=== PATIENT | female | born 1960 | race Caucasian/White ===

== ENCOUNTER 2017-05-24 07:36 | Emergency (ER) | payer BC ==
[2017-05-24 07:53] VITALS: BP 130/82
--- NOTE | 2017-05-24 07:54 | UC ---
Upper Extremity HPI - HPI Summary HPI Summary: she had prior shoulder pain and has been seeing her doctor for this. She has had injection. She was shaking out a sheet and then had sudden pain in the same shoulder. She has severe pain with abduction. - History of Current Complaint Chief Complaint: UCUpperExtremity Stated Complaint: LEFT SHOULDER PAIN Time Seen by Provider: 05/24/17 07:38 Hx Obtained From: Patient Onset/Duration: Gradual Onset Severity Initially: Moderate Severity Currently: Moderate Location Of Pain: Is Discrete @ - left shoulder. Character: Sharp, Aching Aggravating Factor(s): Movement, Lifting, Abduction Associated Signs And Symptoms: Positive: Negative - Allergies/Home Medications Allergies/Adverse Reactions: Allergies Allergy/AdvReac Type Severity Reaction Status Date / Time Nitrofurantoin Allergy Headache Verified 05/24/17 07:45 [From Macrobid] Sulfa Antibiotics Allergy Rash Verified 05/24/17 07:45 Home Medications: Home Medications Atorvastatin* [Lipitor*] 20 mg PO DAILY 05/24/17 [History Confirmed 05/24/17] Escitalopram Oxalate [Lexapro 10 mg] 10 mg PO DAILY 05/24/17 [History Confirmed 05/24/17] Hydroxychloroquine TAB* [Plaquenil TAB*] 200 mg PO DAILY 05/24/17 [History Confirmed 05/24/17] Omeprazole CAP* [Prilosec CAP* 20 MG] 20 mg PO DAILY 05/24/17 [History Confirmed 05/24/17] Potassium Citrate (NF) [Urocit-K 10 (NF)] 10 meq PO DAILY 05/24/17 [History Confirmed 05/24/17] PMH/Surg Hx/FS Hx/Imm Hx Previously Healthy: Yes - Surgical History Surgical History: Yes Surgery Procedure, Year, and Place: 4 C SECTIONS. LITHROTIPSY. GANGLION CYST REMOVED LEFT HAND MIDDLE FINGER. ENDOMETRIAL ABLASION - Family History Known Family History: Positive: Other - no related family history to shoulder injury. - Social History Alcohol Use: None Substance Use Type: None Smoking Status (MU): Never Smoked Tobacco Review of Systems All Other Systems Reviewed And Are Negative: Yes Physical Exam Triage Information Reviewed: Yes Appearance: Well-Appearing, No Pain Distress, Well-Nourished Vital Signs: Initial Vital Signs Temp 98.8 F 05/24/17 07:37 Pulse 65 05/24/17 07:37 Resp 14 05/24/17 07:37 BP 130/82 05/24/17 07:37 Pulse Ox 99 05/24/17 07:37 Vital Signs Reviewed: Yes Eye Exam: Normal ENT Exam: Normal Neck exam: Normal Respiratory Exam: Normal Cardiovascular Exam: Normal Abdominal Exam: Normal Musculoskeletal Exam: Other - Left shoulder diffuse tenderness. There is severe pain with left shoulder abduction. She is not able to comply with exam due to pain. Neurological Exam: Normal Psychological Exam: Normal Skin Exam: Normal Upper Extremity Course/Dx - Course Course Of Treatment: Possible rotator cuff tear. She had a recent injection and had a sudden pain and weakness with flopping the sheets. She is already seeing Dr. Lloyd and agreed to call him tomorrow to set up f/u for possible MRI. - Differential Dx/Diagnosis Differential Diagnosis/HQI/PQRI: Strain, Sprain Provider Diagnoses: left shoulder injury. possible rotator cuff tear. Discharge - Discharge Plan Condition: Fair Disposition: HOME Prescriptions: HYDROcodone/ACETAMIN 5-325 MG* [[place] 5-325 TAB*] 2 tab PO Q8H PRN #20 tab MDD 6 PRN Reason: Pain Patient Education Materials: Arthralgia (ED) Referrals: Shania Zamudio MD [Primary Care Provider] - Jani Ariza MD [Medical Doctor] -
== END 2017-05-24 08:23 | disposition home or self-care (01) ==
LOC: UCCORT 07:36
DX: S49.92XA Unspecified injury of left shoulder and upper arm, initial encounter (principal); X50.9XXA Other and unspecified overexertion or strenuous movements or postures, initial encounter; Y92.9 Unspecified place or not applicable; Z88.2 Allergy status to sulfonamides
CPT/HCPCS: 99212; G0463

== ENCOUNTER 2018-06-29 09:45 | Inpatient (IN) | payer BC ==
--- NOTE | 2018-06-23 11:47 | HP ---
AMENDED REPORT NOW INCLUDES COSIGNER DESIGNATION - ESIGNED BEFORE ADJUSTMENT HISTORY AND PHYSICAL: DATE OF ADMISSION/SURGERY: 06/29/18 DATE OF OFFICE VISIT: 06/21/18 SURGEON: Madai Thompson MD * (DICTATED BY ALESSIO SEBASTIAN) PROCEDURE: Right total knee arthroplasty. CHIEF COMPLAINT: Right knee pain. HISTORY OF PRESENT ILLNESS: Ms. Louie is a 58-year-old female with complaints of right knee pain. She has failed conservative treatment and elected to proceed with a right total knee arthroplasty, which is scheduled for 06/29/18. PAST MEDICAL HISTORY: High cholesterol, lupus, and basal cell carcinoma. PAST SURGICAL HISTORY: Ganglion cyst excision, x4, lithotripsy, and endometrial ablation. CURRENT MEDICATIONS: 1. Vitamin D with calcium. 2. Omeprazole 20 mg daily. 3. Potassium citrate. 4. Plaquenil 200 mg daily. 5. Lipitor 100 mg at night. ALLERGIES: To MACROBID and SULFA. FAMILY HISTORY: Diabetes, hypertension, CVA, rheumatoid arthritis, and leukemia. SOCIAL HISTORY: She is a 58-year-old female. She lives with her partner. She denies use of tobacco or illicit drugs. REVIEW OF SYSTEMS: A complete 14-point review of systems was reviewed with the patient, is positive for asthma. She denies history of DVT, PE, hepatitis, HIV , or anesthesia problems. PHYSICAL EXAMINATION GENERAL: She is well-developed, well-nourished, in no acute distress. VITAL SIGNS: She stands 5 feet 3 inches tall, weighs 158 pounds. Her blood pressure is 122/86 and heart rate is 71. HEENT: Normocephalic and atraumatic. NECK: Supple. No palpable lymph nodes. PULMONARY: Lungs are clear to auscultation bilaterally. CARDIO: Regular rate and rhythm. Strong S1 and S2. ABDOMEN: Soft, nontender, and nondistended. NEUROLOGIC: She is alert and oriented x3. MUSCULOSKELETAL: Right lower extremity: The skin is intact. There are no open wounds or abrasions. There is a moderate joint effusion. She has a 15- degree valgus deformity with MCL laxity. Range of motion is 5 to 125 degrees with patellofemoral crepitus. 5/5 lower extremity strength. 2+ dorsalis pedis pulses and intact sensation. ASSESSMENT AND PLAN: Ms. Louie is a 58-year-old female with end-stage osteoarthritis of the right knee. She has failed conservative treatment and elected to proceed with a right total knee arthroplasty, which is scheduled for 06/29/[address] Thompson discussed the risks and the benefits of the surgery at today's visit and all of her questions were answered. She will follow with Dr. Thompson 2 weeks after the surgery. ALESSIO SEBASTIAN [id number]/[facility] #: [id number] SHARIF
[~2018-06-29 09:45] MED LIST: Buffered Lidocaine 0.9% SYRIN* 5 ML/SYR SYRINGE INTRADERM ONE
--- OUTSIDE RECORDS SUMMARY | 2018-06-29 09:55 | XMS REPORT ---
:1960 External Reference #:[id number] Author Organization [facility] Address [address] [place] [address] [place] [address] Phone [phone] Care Team Providers Name Role Phone Shania Zamudio MD Primary Care Physician Unavailable Payers Type Date Identification Numbers Payment Provider Subscriber Commercial Policy Number: [id number] TRACIE Veronicapatsy Louie PayID: [id number] [address] [address] [place] [address] Medigap Part B Effective: Policy Number: TRACIE Kai Louie 2010 [id number] Expires: 2016 PayID: [id number] [address] [address] [place] [address] Problems Date Description Provider Status Onset: 03/17/2013 Immunological Findings Nonspec Other & Mauricio Tai M.D. Active Unspec Onset: 03/17/2013 Galactorrhea not associated with Mauricio Tai M.D. Active childbirth Onset: 04/15/2013 Cervical spondylosis without myelopathy Mauricio Tai M.D. Active Onset: 10/29/2016 Localized, primary osteoarthritis Madai Thompson M.D. Active Onset: 12/18/2017 Acquired genu shantgum Madai Thompson M.D. Active Social History Type Date Description Comments Lives With Occupation [employer] ETOH Use Denies alcohol use Smoking Patient has never smoked Exercise Type/Frequency Exercises sporadically Allergies, Adverse Reactions, Alerts Date Description Reaction Status Severity Comments 04/08/2012 Sulfa active 04/08/2012 Macrobid active Medications Medication Date Status Form Strength Qnty SIG Indications Ordering Provider Vitamin D2 03/17 Active Tablets 2000Unit 15233 /2012 total Ordering weekly Provider Omeprazole Active Capsules 20mg 30cap 1 po qd Unknown /0000 DR de jesus Simvastatin Active Tablets 5mg 30tab 1 po qd Unknown /0000 s Plaquenil Active Tablets 200mg 1 by Unknown /0000 mouth every day for 1 week then 2 by mouth daily ongoing Lipitor Active Tablets 100mg 1 by Unknown /0000 mouth every night at bedtime Potassium Citrate Active Tablets 10Meq Uriostegui, ER /0000 ER (1080 mg) MD eKl Methylprednisolone 05/25 Hx TBPK 4mg 1unit medrol M75.32 Jani s dose pack Annita, - take as 08/20 Erythromycin Base 03/17 Hx Tablets 250mg 120ta 1/2 Tab bs bid Albino Tai - 10/20 Ultracet 04/29 Hx Tablets 37.5-325m 30tab 1 - 2 po Jennifer g s q4-6hr Laura, - prn pain Sana.DJose David 03/17 Escitalopram Hx Tablets 10mg Ring, Oxalate /0000 MD Shania - 11/30 Medications Administered in Office Medication Date Status Form Strength Qnty SIG Indications Ordering Provider Depomedrol Administered Injection Madai 40MG William Thompson M.D. Depomedrol Administered Injection Madai 40MG 018 Albino Thompson Depomedrol Administered Injection Madai 40MG 017 Albino Thompson Depomedrol Administered Injection Jani F 40MG 017 MD Annita Depomedrol Administered Injection Madai 40MG 016 Albino Thompson Vital Signs Date Vital Result Comment 05/31/2018 Height 63 inches 5'3" Weight 158.00 lb Heart Rate 68 /min BP Systolic Sitting 104 mmHg BP Diastolic Sitting 80 mmHg Respiratory Rate 16 /min Pain Level 7 BMI (Body Mass Index) 28.0 kg/m2 04/05/2018 Height 63 inches 5'3" Weight 158.00 lb Heart Rate 80 /min BP Systolic 173 mmHg BP Diastolic 66 mmHg Respiratory Rate 16 /min Body Temperature 98.4 F Pain Level 6 BMI (Body Mass Index) 28.0 kg/m2 12/18/2017 Height 63 inches 5'3" Weight 160.00 lb per pt Heart Rate 80 /min reg BP Systolic Sitting 114 mmHg Lue BP Diastolic Sitting 80 mmHg Lue Respiratory Rate 16 /min Pain Level 8 right knee BMI (Body Mass Index) 28.3 kg/m2 08/21/2017 Height 63 inches 5'3" Weight 160.00 lb BP Systolic 134 mmHg BP Diastolic 82 mmHg Respiratory Rate 16 /min Body Temperature 98.0 F Pain Level 4 BMI (Body Mass Index) 28.3 kg/m2 06/15/2017 Height 63 inches 5'3" Weight 160.00 lb Heart Rate 64 /min Respiratory Rate 16 /min Pain Level 1 BMI (Body Mass Index) 28.3 kg/m2 05/25/2017 Height 63 inches 5'3" Weight 160.00 lb BP Systolic 134 mmHg BP Diastolic 78 mmHg Respiratory Rate 14 /min Pain Level 7 BMI (Body Mass Index) 28.3 kg/m2 05/14/2017 Height 63 inches 5'3" Weight 160.00 lb BP Systolic 132 mmHg BP Diastolic 79 mmHg Respiratory Rate 15 /min Pain Level 6 BMI (Body Mass Index) 28.3 kg/m2 12/05/2016 Height 63 inches 5'3" Weight 162.00 lb Respiratory Rate 18 /min Pain Level 1 BMI (Body Mass Index) 28.7 kg/m2 10/29/2016 Height 63 inches 5'3" Weight 162.00 lb Heart Rate 66 /min BP Systolic 138 mmHg BP Diastolic 80 mmHg Respiratory Rate 17 /min Body Temperature 99.3 F Pain Level 3 BMI (Body Mass Index) 28.7 kg/m2 04/15/2013 Weight 160.00 lb Heart Rate 90 /min BP Systolic Sitting 116 mmHg BP Diastolic Sitting 78 mmHg 03/17/2013 Height 63 inches 5'3" Weight 157.00 lb Heart Rate 80 /min BP Systolic Sitting 128 mmHg BP Diastolic Sitting 72 mmHg BMI (Body Mass Index) 27.8 kg/m2 04/29/2012 Height 63 inches 5'3" Weight 160.00 lb BP Systolic 122 mmHg BP Diastolic 76 mmHg BMI (Body Mass Index) 28.3 kg/m2 04/08/2012 Height 63 inches 5'3" Weight 160.00 lb BP Systolic 124 mmHg BP Diastolic 66 mmHg BMI (Body Mass Index) 28.3 kg/m2 Results Test Date Test Result H/L Range Note Laboratory test finding 03/22/2013 Cortisol 10.0 g/dL 1 TSH (Thyroid Stimulating Horm) 2.59 miu/mL 0.34-5.60 Free T4 0.95 ng/mL 0.61-1.24 Acth 18 pg/mL 2 CBC Auto Diff 03/22/2013 White Blood Count 5.2 10^3/uL 4.8-10.8 Red Blood Count 4.93 10^6/uL 4.0-5.4 Hemoglobin 14.9 g/dL 12.0-16.0 Hematocrit 44 % 35-47 Mean Corpuscular Volume 90 fL 80-97 Mean Corpuscular Hemoglobin 30 pg 27-31 Mean Corpuscular HGB Conc 34 g/dL 31-36 Red Cell Distribution Width 14 % 10.5-15 Platelet Count 221 10^3/uL 150-450 Mean Platelet Volume 9 um3 7.4-10.4 Abs Neutrophils 3.4 10^3/uL 1.5-7.7 Abs Lymphocytes 1.3 10^3/uL 1.0-4.8 Abs Monocytes 0.4 10^3/uL 0-0.8 Abs Eosinophils 0.1 10^3/uL 0-0.6 Abs Basophils 0.1 10^3/uL 0-0.2 Abs Nucleated RBC 0 10^3/uL Granulocyte % 65.2 % 38-83 Lymphocyte % 24.6 % Low 25-47 Monocyte % 8.1 % 1-9 Eosinophil % 1.0 % 0-6 Basophil % 1.1 % 0-2 Nucleated Red Blood Cells % 0 Urinalysis 03/22/2013 Urine Color Yellow Urine Appearance Clear Urine Specific [place] 1.007 Low 1.010-1.030 Urine Esterase Negative Negative Urine Nitrate Negative Negative Urine Urobilinogen Negative E.U./dL Negative Urine Protein Negative mg/dL Negative Urine pH 6.5 5-9 Urine Blood Negative Negative Urine Ketones Negative mg/dL Negative Urine Bilirubin Negative Negative Urine Glucose Negative mg/dL Negative Laboratory test finding 03/22/2013 Erythrocyte Sed Rate 9 mm/Hr 0-30 C Reactive Protein < 0.5 mg/dL Less than 0.5 Hla B27 03/22/2013 Hla B27 Negative 3 Hla B27 Interp See Comment 4 Laboratory test finding 03/22/2013 Prolactin 5.78 ng/mL 1.0-25.0 1 AM Cortisol 8.7-22.4 PM Cortisol Less than 10 2 -- REFERENCE VALUE -- 10-60 (a.m. collection) Test Performed by: [facility] [address] [place] [address] Overhauler: Taco Ambriz III, M.D. 3 -- REFERENCE VALUE -- Not Applicable 4 RESULT: HLA-B27 antigen was not detected. Method: Flow Cytometry Test Performed by: [facility] - [address] [address] Overhauler: Taco Ambriz III, M.D. Procedures Date CPT Code Description Status 04/05/2018 51582 Inject/Drain Joint/Bursa Major W/O US Completed 12/18/2017 99439 Inject/Drain Joint/Bursa Major W/O US Completed 08/21/2017 24799 Inject/Drain Joint/Bursa Major W/O US Completed 05/14/2017 44218 Inject/Drain Joint/Bursa Major W/O US Completed 10/29/2016 53213 Inject/Drain Joint/Bursa Major W/O US Completed 05/04/2012 42643 Excision Tendon Sheath Ganglion /Or Joint Capsule Hand Completed Or Finger 05/04/2012 16398 Excision Tendon Sheath Ganglion /Or Joint Capsule Hand Completed Or Finger 04/08/2012 15326 Rad Exam; Fingers Completed Encounters Type Date Location Provider CPT E/M Dx Office Visit 06/15/2017 [facility] [address] M75.32 11:30a Mana BRENNER G56.03 G56.23 Office Visit 05/25/2017 3:15p [facility] 23201 M75.32 Mana BRENNER M25.512 Office Visit 05/14/2017 9:00a [facility] Jani Ariza 42360 M75.32 Of Mana BRENNER Office Visit 12/05/2016 9:30a [facility] Madai Thompson M.D. 00107 M25.561 Of Mana M25.562 M17.0 Office Visit 10/29/2016 10:30a [facility] Mad[facility] Thompson M.D. 27391 M25.561 Mana M25.562 M17.0 Office Visit 04/15/2013 1:40p [facility] Mauricio Tai, 32514 795.79 Of Yolanda Posada 721.0 Office Visit 03/17/2013 3:00p [facility] Mauricio Endo, 82349 795.79 Of Yolanda Posada 611.6 Plan of Care Future Appointment(s):06/21/2018 1:30 pm - Madai Thompson M.D. at [facility]/2018 - Madai Thompson M.D.M17.11 Unilateral primary osteoarthritis, right kneeFollow up:Follow up: 7-10 days before rwvuyatV57.061 Valgus deformity, not elsewhere classified, right kneeM25.461 Effusion, right kneeM25.561 Pain in right knee
--- OUTSIDE RECORDS SUMMARY | 2018-06-29 09:55 | XMS REPORT ---
:1960 External Reference #:[id number] Author Organization [facility] Address [address], [address] [place] [address] Phone [phone] Care Team Providers Name Role Phone Shania Zamudio MD Care Team Information Assurance Associate Unavailable Shania Zamudio MD Primary Care Physician Unavailable Payers Type Date Identification Numbers Payment Provider Subscriber Commercial Policy Number: [id number] Chuckie Louie PayID: [id number] [address] [address] [place] [address] Problems Date Description Provider Status Onset: 11/21/2003 Sprain of foot Active Family History Date Family Member(s) Problem(s) Comments Father due to Parkinson's disease () Father Parkinson's Disease Mother due to Diabetes () Mother Cerebrovascular Accident Mother due to Stroke () Mother Asthma Mother due to Heart Disease () First Brother due to Leukemia () Second Brother Lung Cancer Third Brother Parkinson's Disease Fourth Brother Thyroid Disease First Sister Cervical Cancer Social History Type Date Description Comments Marital Status Lives With Spouse Diet Patient follows no dietary restrictions Occupation [employer] Cigarette Use Never Smoked Cigarettes ETOH Use Rarely consumes alcohol Recreational Drug Use Never Used Drugs Daily Caffeine Patient consumes minimal amounts of caffeine Exercise Type/Frequency Exercises regularly Allergies, Adverse Reactions, Alerts Date Description Reaction Status Severity Comments 09/05/2014 Sulfa Drugs active hives 09/05/2014 Macrobid active does not tolerate Medications Medication Date Status Form Strength Qnty SIG Indications Ordering Provider Prilosec Active Capsules 20mg 30cap 1 by mouth Unknown /0000 DR de jesus every day Vitamin D-3 / Active Capsules 1000Unit 2 by mouth Unknown Calcium /0000 every day Atorvastatin Active Tablets 20mg 1 by mouth Unknown Calcium /0000 every day Potassium Citrate Active Tablets 10Meq 1 tabs by Unknown ER /0000 ER (1080 mg) mouth twice a day Hydroxychloroquine Active Tablets 200mg twice Unknown Sulfate /0000 daily Proair HFA Active Aerosol 108(90Bas take 2 Unknown / e) puffs mcg/Act every 6 hours as needed for shortness of breath. Immunizations CPT Code Status Date Vaccine Lot # [id number] Given 04/22/1994 DT Vaccine Younger Than 7 Yrs Vital Signs Date Vital Result Comment 05/06/2018 BP Systolic Sitting Left Arm 102 mmHg BP Diastolic Sitting Left Arm 80 mmHg Heart Rate 79 /min Respiratory Rate 18 /min Height 63.5 inches 5'3.50" Weight 159.00 lb BMI (Body Mass Index) 27.7 kg/m2 BSA (Body Surface Area) 1.76 m2 [place] body weight in kilograms 53 O2 % BldC Oximetry 96 % 09/27/2014 BP Systolic Sitting Right Arm 112 mmHg BP Diastolic Sitting Right Arm 74 mmHg Heart Rate 81 /min Respiratory Rate 16 /min Height 63.5 inches 5'3.50" Weight 159.00 lb BMI (Body Mass Index) 27.7 kg/m2 BSA (Body Surface Area) 1.76 m2 Results Description No Information Procedures Date CPT Code Description Status 05/19/2018 41546 Bronchospasm Provocation Evaluation Multi Spirometric Completed Determinati 05/19/2018 08094 Spirometry Completed 09/22/2016 93389 Nerve Conduction 7-8 Studies Completed 09/22/2016 91009 Needle Electromyography Complete, Five Or More Muscles Completed Studied 04/10/2016 08299 Stress Test Interpre And Report Only Completed 04/10/2016 71669 Stress Test Interpre And Report Only Completed 04/10/2016 59883 Stress Test Physician Super Only Completed 04/10/2016 24605 Stress Test Physician Super Only Completed 04/10/2016 77804 Myocardial Imaging Tomographic Multiple Study AT Rest Completed Or Stress 04/10/2016 63039 Myocardial Imaging Tomographic Multiple Study AT Rest Completed Or Stress 11/30/2013 Mammogram Completed 11/30/2012 Colonoscopy Completed 11/30/2011 Bone Mineral Density Test Completed Encounters Type Date Location Provider CPT E/M Dx Office Visit 05/06/2018 2:00p [place] [address] J45.20 J30.89 Office Visit 09/27/2014 8:30a Surgical Office Ponce Taylor, [address]194 709.9 M.Heather Plan of Care Future Appointment(s):10/06/2018 2:45 pm - Noman Treadwell MD at [facility]/07/ 2018 - Noman Treadwell MDJ45.20 Mild intermittent asthma, uncomplicatedComments: Symptoms may be secondary to asthma. I am checking PFTs. She wishes not to start any new medicationsat this time.Follow up:5 nuvrosQ01.89 Other allergic rhinitisComments:If her symptoms are persistent I will check RAST and IgE.
--- OUTSIDE RECORDS SUMMARY | 2018-06-29 09:55 | XMS REPORT ---
:1960 External Reference #:[id number] Author Organization [facility] Address [address] [place] [address] [place] [address] Phone [phone] Care Team Providers Name Role Phone Shania Zamudio MD Primary Care Physician Unavailable Payers Type Date Identification Numbers Payment Provider Subscriber Commercial Policy Number: [id number] TRACIE Veronicapatsy Louie PayID: [id number] [address] [address] [place] [address] Medigap Part B Effective: Policy Number: TRACIE Kai Louie 2010 [id number] Expires: 2016 PayID: [id number] [address] [address] [place] [address] Problems Date Description Provider Status Onset: 03/17/2013 [...] Type Date Description Comments 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 Denies alcohol use Smoking Patient has never smoked Exercise Type/Frequency Exercises sporadically Allergies, Adverse Reactions, Alerts Date Description Reaction Status Severity Comments 04/08/2012 Sulfa active 04/08/2012 Macrobid active Medications Medication Date Status Form Strength Qnty SIG Indications Ordering Provider Vitamin D2 03/17 Active Tablets 2000Unit 22429 /2012 total Ordering weekly Provider Omeprazole Active Capsules 20mg 30cap 1 po qd Unknown /0000 DR de jesus Plaquenil Active Tablets 200mg 1 by Unknown /0000 mouth every day for 1 week then 2 by mouth daily ongoing Lipitor Active Tablets 20mg 1 daily Unknown / Potassium Citrate Active Tablets 10Meq Uriostegui, ER /0000 ER (1080 mg) MD Kel Methylprednisolone 05/25 Hx TBPK 4mg 1unit medrol M75.32 Jani s dose pack Annita, - take as MD 08/20 Erythromycin Base 03/17 Hx Tablets 250mg 120ta 1/2 Tab bs bid Albino Tai - 10/20 Ultracet 04/29 Hx Tablets 37.5-325m 30tab 1 - 2 po g s q4-6hr Laura, - prn pain Albino 03/17 Simvastatin Hx Tablets 5mg 30tab 1 po qd Unknown /0000 s - 06/20 Escitalopram Hx Tablets 10mg Ring, Oxalate /0000 [...] Thompson Vital Signs Date Vital Result Comment 06/21/2018 Height 63 inches 5'3" Weight 158.00 lb Heart Rate 71 /min BP Systolic 122 mmHg BP Diastolic 86 mmHg BMI (Body Mass Index) 28.0 kg/m2 05/31/2018 Height 63 inches 5'3" Weight 158.00 [...] Color Yellow Urine Appearance Clear Urine Specific [place] 1.007 Low 1.010-1.030 Urine Esterase Negative Negative [...] -- 10-60 (a.m. collection) Test Performed by: [address] [address] [address] Refinisher: Taco Ambriz III, M.D. 3 -- REFERENCE VALUE -- Not Applicable 4 RESULT: HLA-B27 antigen was not detected. Method: Flow Cytometry Test Performed by: [address] [address] [address] Refinisher: Taco Ambriz III, M.D. Procedures Date CPT Code Description Status 04/05/2018 24473 Inject/Drain Joint/Bursa Major W/O US Completed 12/18/2017 01170 Inject/Drain Joint/Bursa Major W/O US Completed 08/21/2017 58481 Inject/Drain Joint/Bursa Major W/O US Completed 05/14/2017 11155 Inject/Drain Joint/Bursa Major W/O US Completed 10/29/2016 15813 Inject/Drain Joint/Bursa Major W/O US Completed 05/04/2012 52250 Excision Tendon Sheath Ganglion /Or Joint Capsule Hand Completed Or Finger 05/04/2012 79165 Excision Tendon Sheath Ganglion /Or Joint Capsule Hand Completed Or Finger 04/08/2012 28376 Rad Exam; Fingers Completed Encounters Type Date Location Provider CPT E/M Dx Office Visit 05/31/2018 [facility] Thompson M.D. 14101 M17.11 3:15p Mana M21.061 M25.461 M25.561 Office Visit 06/15/2017 11:30a [facility] 47553 M75.32 Mana BRENNER G56.03 G56.23 Office Visit 05/25/2017 3:15p [facility] 58034 M75.32 Mana BRENNER M25.512 Office Visit 05/14/2017 9:00a [facility] Jani Juan Ariza, [address]7550 M75.32 Of Mana BRENNER Office Visit 12/05/2016 9:30a [facility] Madai Thompson M.D. 66787 M25.561 Of Mana M25.562 M17.0 Office Visit 10/29/2016 10:30a [facility] Thompson M.D. 04369 M25.561 Mana M25.562 M17.0 Office Visit 04/15/2013 1:40p [facility] Mauricio Endo, [address] 795.79 Of Yolanda Posada 721.0 Office Visit 03/17/2013 3:00p [facility] Mauricio Endo, [address]10[address] 795.79 Of Yolanda Posada 611.6 Plan of Care Future Appointment(s):07/12/2018 1:30 pm - Madai Thompson M.D. at [facility]/29/2018 12:30 pm - Jayro Cruz PA-C at [facility]06/29/2018 12:30 pm - ALESSIO Ortiz at [facility]06/29/2018 12:30 pm - Madai Thompson M.D. at [facility]06/21/2018 - Madai Thompson M.D.M17.11 Unilateral primary osteoarthritis, right kneeFollow up:Follow up: 2 weeks after emgjvftN72.061 Valgus deformity, not elsewhere classified, right kneeM25.461 Effusion, right kneeM25.561 Pain in right knee
[2018-06-29] MEDS ORDERED: Tranexamic Acid 1,000 MG/10 ML 1,000 MG in NS 0.9% 100 ML* 100 ML IV ONE (10:00)
[2018-06-29] MEDS ORDERED: ceFAZolin 2 GM PREMIX (*) 2 GM/50 ML BAG IVPB ONE (10:03)
[2018-06-29] MEDS ORDERED: fentaNYL* 50 MCG/ML 2 ML VIAL (100 MCG VIAL) ONE ×2 (10:12→17:42)
[2018-06-29] MEDS ORDERED: Midazolam* 1 MG/ML 5 ML VIAL (5 MG) ONE (10:12)
[2018-06-29] MEDS ORDERED: Propofol* 10 MG/ML 20 ML BTL IV PUSH ONE ×2 (10:55→12:46)
[2018-06-29] MEDS ORDERED: EPHEDrine (Pressors)* 50 MG/ML VIAL ONE (12:46)
[2018-06-29] MEDS ORDERED: ROPIVACAINE 5 MG/ML 30 ML BTL (0.5%) ONE (12:46)
[2018-06-29] MEDS ORDERED: Bupivacaine 0.5% PF 10 ML VIAL INJ ONE (12:46)
[2018-06-29] MEDS ORDERED: HYDROcodone/ACETAMIN 5-325 MG* 1 TAB PO PRN (13:08)
[2018-06-29] MEDS ORDERED: fentaNYL* 50 MCG/ML 2 ML VIAL (100 MCG VIAL) IV PRN (13:08)
[2018-06-29] MEDS ORDERED: Ondansetron INJ* 2 MG/ML VIAL IV PRN ×2 (13:08→15:00)
[2018-06-29] MEDS ORDERED: Naloxone* 0.4 MG/ML 1 ML VIAL IV PRN (13:08)
[2018-06-29] MEDS ORDERED: Acetaminophen TAB* 325 MG PO PRN (13:08)
[2018-06-29] MEDS ORDERED: oxyCODONE/Acetamin 5/325 MG* TAB PO PRN (15:00)
[2018-06-29] MEDS ORDERED: ceFAZolin 1 GM in Dextrose (*) 1 GM/50 ML BAG IVPB SCH (15:00)
[2018-06-29] MEDS ORDERED: Cyclobenzaprine TAB* 10 MG PO PRN (15:00)
[2018-06-29] MEDS ORDERED: Morphine INJ* 2 MG/ML 1 ML SYRINGE (TWO MG - NEW SYRINGE VERSION) IV PRN (15:00)
[2018-06-29] MEDS ORDERED: Bisacodyl SUPP* 10 MG SUPP PR PRN (15:00)
[2018-06-29] MEDS ORDERED: Acetaminophen TAB* 325 MG PO SCH (15:00)
[2018-06-29] MEDS ORDERED: Polyethylene Glycol 3350* 17 GM PACKET PO PRN (15:00)
[2018-06-29] MEDS ORDERED: diPHENhydraMINE IV* 50 MG/ML 1 ml VIAL (BENADRYL) IV PRN (15:00)
[2018-06-29] MEDS ORDERED: Magnesium Hydroxide LIQ* 30 ML UDC PO PRN (15:00)
[2018-06-29] MEDS ORDERED: Albuterol HFA INHALER* 8 gm MDI INH PRN (15:04)
--- NOTE | 2018-06-29 15:53 | RAD ---
HISTORY: s/p right TKA COMPARISONS: June 21, 2018 VIEWS: 2, Frontal and lateral views of the right knee FINDINGS: BONE DENSITY: Normal. BONES: The patient is status post right knee arthroplasty. There is no hardware failure or osteolysis. JOINTS: The patient is status post right knee arthroplasty. ALIGNMENT: There is no dislocation. SOFT TISSUES: Unremarkable. OTHER FINDINGS: There is postsurgical change to the right knee. IMPRESSION: STATUS POST RIGHT KNEE ARTHROPLASTY.
[2018-06-29] MEDS ORDERED: HYDROcodone/ACETAMIN 5-325 MG* 1 TAB ONE (17:42)
[2018-06-29] MEDS ORDERED: Warfarin TAB(*) 6 MG PO ONE (19:30)
[2018-06-29] MEDS: Atorvastatin* 20 MG TAB PO SCH (19:38)
[2018-06-29] MEDS: Acetaminophen TAB* 325 MG PO SCH (19:39)
[2018-06-29] MEDS: Omeprazole CAP* 20 MG PO SCH (19:39)
[2018-06-29] MEDS: oxyCODONE TAB* 5 MG TAB PO PRN (19:40)
[2018-06-29] MEDS: Ondansetron TAB* 4 MG PO PRN (19:41)
[2018-06-29] MEDS: ceFAZolin 1 GM in Dextrose (*) 1 GM/50 ML BAG IVPB SCH (21:11)
[2018-06-29] MEDS: Hydroxychloroquine TAB* 200 MG PO SCH (21:13)
[2018-06-29] MEDS: Potassium Chlor TAB* 10 MEQ TAB.ER PO SCH (21:13)
[2018-06-29] MEDS: Docusate CAP* 100 MG PO SCH (21:13)
[2018-06-29] MEDS: Magnesium Hydroxide LIQ* 30 ML UDC PO SCH (21:13)
[2018-06-30] MEDS: oxyCODONE TAB* 5 MG TAB PO PRN ×4 (00:30→21:55)
[2018-06-30] MEDS: Acetaminophen TAB* 325 MG PO SCH ×3 (03:33→19:09)
[2018-06-30] MEDS: ceFAZolin 1 GM in Dextrose (*) 1 GM/50 ML BAG IVPB SCH ×2 (04:26→12:05)
[2018-06-30] MEDS: Ondansetron TAB* 4 MG PO PRN (04:33)
[2018-06-30] MEDS ORDERED: PROCHLORPERAZINE INJ 5 MG/ML 2 ML VIAL IV PRN (04:54)
[2018-06-30 05:54] LABS: Hematocrit 38 % (35-47); Hemoglobin 13.4 g/dl (12.0-16.0); Mean Platelet Volume 8.5 um3 (7.4-10.4); Platelet Count 196 10^3/ul (150-450)
[2018-06-30 06:02] LABS: INR 0.97 (0.77-1.02)
[2018-06-30] MEDS ORDERED: Scopolamine 1.5 mg* PATCH TRANSDERM ONE (07:00)
[2018-06-30] MEDS: oxyCODONE/Acetamin 5/325 MG* TAB PO PRN ×2 (07:39→18:37)
[2018-06-30 08:18] LABS: EGFR Non-African American 79.1 (>60)
--- NOTE | 2018-06-30 08:58 | PN ---
Progress Note - Progress Note Date of Service: 06/30/18 SOAP: Subjective: []Patient seen at bedside. She is feeling dizzy and nauseous with symptom improvement with scopolamine patch. Right knee pain is tolerable though rated 7/ 10 both at rest and with activity. Denies chest pain, shortness of breath or leg numbness. Objective: []General: Well appearing, NAD RLE: Right knee dressing is clean, dry and intact without surrounding erythema. Thigh is soft. DF/PF intact. Sensation intact distally. DP 2+. BL LE calves supple and nontender without erythema, edema or palpable cords. Assessment: []POD 1 sp right total knee arthroplasty on 06/[address] Thompson Plan: []WBAT PT/OT Continue cryo unit, first dressing change tomorrow Lovenox bridge to coumadin, coumadin 8 mg today Vital Signs Temp 98.0 F 06/30/18 08:02 Pulse 60 06/30/18 07:39 Resp 20 06/30/18 08:00 BP 121/63 06/30/18 07:39 Pulse Ox 91 06/30/18 07:39 Intake & Output 06/29/18 06/30/18 06/30/18 18:59 06:59 18:59 Intake Total 2500 1660 Output Total 1880 1500 Balance 620 160 Weight 157 lb Intake: IV Fluids 2500 1110 ABX - CEFAZOLIN 110 LR 2500 1000 Oral 550 Output: Haider 1600 1000 Residual 30 Haider 16 Fr 30 Emesis 500 Estimated Blood Loss 250 Other: # Bowel Movements 0 Laboratory Last Values Hgb 13.4 g/dl (12.0-16.0) 06/30/18 05:32 Hct 38 % (35-47) 06/30/18 05:32 Plt Count 196 10^3/ul (150-450) 06/30/18 05:32 MPV 8.5 um3 (7.4-10.4) 06/30/18 05:32 INR (Anticoag Therapy) 0.97 (0.77-1.02) 06/30/18 05:32 Sodium 137 mmol/L (135-145) 06/30/18 05:32 Potassium 3.6 mmol/L (3.5-5.0) 06/30/18 05:32 Chloride 100 mmol/L (101-111) L 06/30/18 05:32 Carbon Dioxide 26 mmol/L (22-32) 06/30/18 05:32 Anion Gap 11 mmol/L (2-11) 06/30/18 05:32 BUN 13 mg/dL (6-24) 06/30/18 05:32 Creatinine 0.75 mg/dL (0.51-0.95) 06/30/18 05:32 Est GFR ( Amer) 95.7 (>60) 06/30/18 05:32 Est GFR (Non-Af Amer) 79.1 (>60) 06/30/18 05:32 BUN/Creatinine Ratio 17.3 (8-20) 06/30/18 05:32 Glucose 149 mg/dL (70-100) H 06/30/18 05:32 Calcium 8.9 mg/dL (8.6-10.3) 06/30/18 05:32
[2018-06-30] MEDS: Magnesium Hydroxide LIQ* 30 ML UDC PO SCH ×2 (09:13→21:55)
[2018-06-30] MEDS: Hydroxychloroquine TAB* 200 MG PO SCH ×2 (09:14→21:55)
[2018-06-30] MEDS: Docusate CAP* 100 MG PO SCH ×2 (09:14→21:55)
[2018-06-30] MEDS: Potassium Chlor TAB* 10 MEQ TAB.ER PO SCH ×2 (09:14→21:55)
[2018-06-30] MEDS: Enoxaparin(*) 30 MG/0.3 ML SYR SUBCUT SCH (12:04)
--- NOTE | 2018-06-30 13:53 | OP ---
DATE OF OPERATION: 06/29/18 - ROOM #348 DATE OF : 58 ATTENDING SURGEON: Madai Thompson M.D. MOTION PICTURE DIRECTOR: ALESSIO Yanez. Gonzalez did help throughout the procedure with preparation of the leg, wound retraction, manipulation of the knee, and wound closure. ANESTHESIOLOGIST: Dr. Mclaughlin. ANESTHESIA TYPE: Spinal. PRE-OP DIAGNOSIS: Severe end-stage degenerative osteoarthritis of the right knee joint. POST-OP DIAGNOSIS: Severe end-stage degenerative osteoarthritis of the right knee joint. OPERATIVE PROCEDURE: Right total knee arthroplasty. TOURNIQUET TIME: 51 minutes. COMPLICATIONS: None. ESTIMATED BLOOD LOSS: 300 mL. SPECIMEN: Bone and cartilage from the right knee joint sent to Pathology. HARDWARE USED: This is cemented cemented [employer] total knee arthroplasty hardware. Two packages of Simplex bone cement. For the femur, a size 4 narrow right posterior stabilized Legion Oxinium component. For the tibia, a size 2 right Randi II tibial base plate. For the insert, a 26-mm, 7.5 thickness, three-peg all-poly patella and for the insert, a 9-mm Legion size 1/2 high flexion articular insert. BRIEF HISTORY/INDICATIONS: Ms. Louie is a 58-year-old female with years of increasingly severe right knee pain. Radiographs showed advanced arthritis, worse in the patellofemoral compartment, and she did have valgus deformity. She failed conservative treatment with the antiinflammatories, pain medications , intraarticular injections, and physical therapy. Due to continued pain and decreased quality of life, she elected to undergo right total knee arthroplasty. Informed consent was obtained from the patient. She understood the risks of surgery included, but were not limited to bleeding, infection, damage to nearby structures, continued pain, need for further surgery, intraoperative fracture, nerve palsy, hardware failure or loosening, knee stiffness, loss of motion, stroke, heart attack, blood clot, and . She wished to proceed. INTRAOPERATIVE FINDINGS: Intraoperatively, the patient was noted to have advanced cartilage degeneration in all 3 compartments. She had complete loss of cartilage in the patellofemoral joint. DESCRIPTION OF PROCEDURE: Ms. Louie was identified in the preanesthesia unit. Her right lower extremity was marked as the correct operative site. Informed consent was signed and placed in the chart. The patient was taken to the operating room and placed under spinal anesthesia. A Haider catheter was placed. Tourniquet was placed on the right thigh. Right lower extremity was prepped and draped in the usual sterile fashion. Preop time-out was made to correctly identify the patient, side and site. Appropriate perioperative antibiotics were given within 1 hour of incision. Tourniquet was inflated and total tourniquet time for this procedure was 51 minutes. A midline incision was made with a 10 blade and carried down through the extensor mechanism. New 10 blade was used to make standard medial parapatellar arthrotomy. Patella was subluxed laterally. Electrocautery was used to subperiosteally elevate the soft tissues off the superomedial tibia to the mid sagittal plane. The knee was flexed up. The anterior horn of the lateral meniscus and the ACL were sharply released. A drill was used to enter the distal femur. Intramedullary distal femoral cutting guide was placed and pinned into position. Oscillating saw was used to make the distal femoral cut. Next, the external rotation guide was pinned on the distal femur and the distal femur was sized to a size 4. Size 4 multi-cutting jig was pinned on the distal femur. Oscillating saw was used to make the appropriate 4 chamfer cuts. The PCL was completely released and the tibia was subluxed anteriorly. Extramedullary tibial cutting guide was pinned on the proximal tibia. Oscillating saw was used to make a proximal tibial cut perpendicular to the mechanical axis of the tibia. The bone was carefully removed. The knee was brought out into full extension. The spacer block had good fit with the knee in full extension. Medial and lateral ligaments were well balanced. Flexion and extension gaps were well balanced. The knee was flexed up. Lamina spreaders were placed both medially and laterally. Any remaining meniscus was carefully removed using electrocautery. Posterior osteophytes were removed using curved osteotome and curette. Tibial tray and drop fatuma were placed and once again confirmed a satisfactory proximal tibial cut. A size 4 narrow right femoral trial was impacted onto the distal femur and had excellent fit. The box for the posterior stabilized implant was prepared using a reamer and box cut osteotome. Size 2 tibial tray trial with a 9 mm insert trial was placed and the knee was taken through a range of motion. The knee had full extension to 130 degrees of flexion with satisfactory patellofemoral tracking. The patella was everted. A 7-mm of subpatellar bone and cartilage were carefully removed an oscillating saw. The patella was sized to a size 26. Three peg holes were drilled through the size 26 guide. A 26-trial with 7.5 thickness was chosen and placed. The knee was taken through a range of motion and had satisfactory patellofemoral tracking. All trials were carefully removed. The tibia was subluxed anteriorly and sized to a size 2. Proximal tibia was prepared using a size 2 keel punch. All bony cut surfaces were copiously irrigated with sterile saline and dried. Final implants were cemented into place starting with the tibia followed by the femur and last the patella. A 9-mm insert trial was placed while the knee was brought out into full extension. Tourniquet was turned down and the knee was copiously irrigated with sterile saline. Electrocautery was used to obtain meticulous hemostasis. Once the cement had fully cured, the insert trial was removed. Any excess cement was removed from around the capsule and hardware. A size 9 posterior stabilized articular insert size 1/2 chosen as a final insert. This was locked into position on the tibial tray. This was a high flexion insert. The stability of the insert was checked and rechecked and noted to be stable. The extensor mechanism was closed using interrupted #1 Vicryls. The rest of the incision was closed in a layered fashion using 0 and 2-0 Vicryls. Skin was closed using running 3-0 nylon suture. Sterile Xeroform, 4x4s, and Webril were used to cover the incision. Leroy wrap and cold pack were placed over this. The patient's anesthesia was reversed without difficulty. She was taken to the PACU in stable condition. Intended weightbearing will be weightbearing as tolerated. Intended DVT prophylaxis will be Coumadin with a Lovenox bridge. [id number]/[facility] #: [id number] [facility]
[2018-06-30] MEDS ORDERED: Warfarin TAB(*) 4 MG PO ONE (17:00)
[2018-06-30] MEDS: Omeprazole CAP* 20 MG PO SCH (17:18)
[2018-06-30] MEDS: Atorvastatin* 20 MG TAB PO SCH (17:18)
[2018-07-01] MEDS: oxyCODONE/Acetamin 5/325 MG* TAB PO PRN ×3 (02:55→12:02)
[2018-07-01] MEDS: Acetaminophen TAB* 325 MG PO SCH ×2 (02:57→12:02)
[2018-07-01 06:05] LABS: Hematocrit 38 % (35-47); Hemoglobin 13.2 g/dl (12.0-16.0); Mean Platelet Volume 8.6 um3 (7.4-10.4); Platelet Count 217 10^3/ul (150-450)
[2018-07-01 06:09] LABS: INR 2.04 (0.77-1.02)
[2018-07-01] MEDS: Docusate CAP* 100 MG PO SCH (08:13)
[2018-07-01] MEDS: Magnesium Hydroxide LIQ* 30 ML UDC PO SCH (08:13)
[2018-07-01] MEDS: Hydroxychloroquine TAB* 200 MG PO SCH (08:13)
[2018-07-01] MEDS: Potassium Chlor TAB* 10 MEQ TAB.ER PO SCH (08:13)
--- NOTE | 2018-07-01 08:59 | PN ---
Progress Note - Progress Note Date of Service: 07/01/18 SOAP: Subjective: [] Patient seen OOB in chair. She is feeling well with no nausea or dizziness today. Denies chest pain, shortness of breath, leg numbness. Right knee pain is well controlled. Objective: [] General: Well appearing, NAD RLE: Right knee dressing changed, incision is clean, dry and intact without surrounding erythema. Thigh is soft. DF/PF intact. Sensation intact distally. DP 2+. BL LE calves supple and nontender without erythema, edema or palpable cords. Assessment: []POD 2 sp right total knee arthroplasty on 06/[address] Thompson Plan: []WBAT PT/OT Continue cryo unit stop Lovenox , coumadin 0 mg today Likely DC home today, will evaluate after PT Vital Signs Temp 98.6 F 07/01/18 07:30 Pulse 64 07/01/18 07:30 Resp 18 07/01/18 08:13 BP 127/55 07/01/18 07:30 Pulse Ox 92 07/01/18 07:30 Intake & Output 06/30/18 07/01/18 07/01/18 18:59 06:59 18:59 Intake Total 1184 1000 360 Output Total 1525 1500 300 Balance -341 -500 60 Intake: IV Fluids 844 ABX - CEFAZOLIN 55 LR 789 Oral 340 1000 360 Output: Urine 1525 1500 300 Laboratory Last Values Hgb 13.2 g/dl (12.0-16.0) 07/01/18 05:39 Hct 38 % (35-47) 07/01/18 05:39 Plt Count 217 10^3/ul (150-450) 07/01/18 05:39 MPV 8.6 um3 (7.4-10.4) 07/01/18 05:39 INR (Anticoag Therapy) 2.04 (0.77-1.02) H 07/01/18 05:39 Sodium 137 mmol/L (135-145) 06/30/18 05:32 Potassium 3.6 mmol/L (3.5-5.0) 06/30/18 05:32 Chloride 100 mmol/L (101-111) L 06/30/18 05:32 Carbon Dioxide 26 mmol/L (22-32) 06/30/18 05:32 Anion Gap 11 mmol/L (2-11) 06/30/18 05:32 BUN 13 mg/dL (6-24) 06/30/18 05:32 Creatinine 0.75 mg/dL (0.51-0.95) 06/30/18 05:32 Est GFR ( Amer) 95.7 (>60) 06/30/18 05:32 Est GFR (Non-Af Amer) 79.1 (>60) 06/30/18 05:32 BUN/Creatinine Ratio 17.3 (8-20) 06/30/18 05:32 Glucose 149 mg/dL (70-100) H 06/30/18 05:32 Calcium 8.9 mg/dL (8.6-10.3) 06/30/18 05:32
[2018-07-01 11:40] VITALS: BP 121/58
[2018-07-01] MEDS: Enoxaparin(*) 30 MG/0.3 ML SYR SUBCUT SCH (11:52)
--- NOTE | 2018-07-02 03:33 | DS ---
DISCHARGE SUMMARY: DATE OF ADMISSION: 06/29/18 DATE OF DISCHARGE: 07/01/18 PROVIDER: Madai Thompson MD. ATTENDING SURGEON: Madai Thompson MD * (DICTATED BY ALESSIO SEBASTIAN) ACCESS DEVELOPER: ALESSIO Sebastian PREOPERATIVE DIAGNOSIS: Severe end-stage degenerative osteoarthritis of the right knee joint. OPERATIVE PROCEDURE: Right total knee arthroplasty. HISTORY: Ms. Louie is a 58-year-old female with years of increasingly severe right knee pain. Radiograph showed advanced arthritis worse on the patellofemoral compartment. She does have valgus deformity. She failed conservative treatment with anti-inflammatories, pain medications, intra- articular injections and physical therapy. She elected to undergo a right total knee arthroplasty. HOSPITAL COURSE: The patient was admitted to [facility] on . She underwent a right total knee arthroplasty without complication. She recovered briefly in the PACU unit and was transferred to the short-stay surgical unit in stable condition. On postop day 1, she was well appearing, in no acute distress. Right knee dressing was clean, dry, and intact without surrounding erythema. Her thigh was soft. Dorsiflexion and plantar flexion intact. Sensation intact distally. Dorsalis pedis pulse was 2+. Bilateral calves supple, nontender without erythema, edema, or palpable cords. Postop day 2, she is well appearing in no acute distress. Right knee dressing was changed. Incision clean, dry, intact without any surrounding erythema. Thigh was soft. Dorsiflexion and plantar flexion intact. Sensation intact distally. Dorsalis pedis pulses 2+. PHYSICAL EXAMINATION: Vital Signs: Included temperature 98.6, pulse 64, respiratory rate 18, and blood pressure 127/65, pulse ox was 92 earlier in the day improved to 99 on room air. The patient met her goals of physical therapy and she was deemed stable to discharge home. MEDICATIONS: 1. Plaquenil 200 mg p.o. b.i.d. 2. Atorvastatin 20 mg p.o. q.p.m. 3. Potassium 10 mEq p.o. b.i.d. 4. Omeprazole 20 mg p.o. q.p.m. 5. Calcium 600 with D3 two tabs p.o. q.a.m. 6. Albuterol 2 puffs inhaled 4 times a day p.r.n. 7. Acetaminophen 975 mg p.o. q. 4 hours p.r.n. up to 4000 mg daily. 8. Docusate 100 mg p.o. b.i.d. p.r.n. 9. Percocet 5/325 mg 1 to 2 tabs every 4 to 6 hours as needed for pain, max daily dose 10. 10. Warfarin 2 mg tabs 1 to 3 tabs daily, dose depends on INR. DISCHARGE PLAN: The patient will be weightbearing as tolerated. She may shower on her third postoperative day. Visiting home nurse to do wound checks. Continue physical therapy and occupational therapy. Coumadin dosing on 07/01/18, 0 mg; 07/02/18, 2 mg; 07/03/18, 0 mg; 07/04/18, 2 mg. Recheck INR on 07/05/18 for further dosing instructions. Pain control: Percocet 5/325 mg 1 to 2 tabs every 4 to 6 hours as needed for pain, max 10 tabs per day, max of Tylenol is 4000 mg from all sources in a day. Follow up with Dr. Thompson in 10 to 14 days. ALESSIO BELLAMY [id number]/[facility] #: [id number] [facility]
[2018-07-03] MEDS ORDERED: Scopolamine PATCH Remove* 1 NOTE MISC PATCH OFF ONE (07:00)
== END 2018-07-01 13:50 | disposition home health service (06) | DRG 302 ==
LOC: AA 09:45 → SSU 18:15 → UNDODISIN 07-01 16:10
PROVIDERS: ADMIT Orthopaedic Surgery Adult Reconstructive Orthopaedic Surgery; ATTEND Orthopaedic Surgery Adult Reconstructive Orthopaedic Surgery
PROC: 0SRC069 Replacement of Right Knee Joint with Oxidized Zirconium on Polyethylene Synthetic Substitute, Cemented, Open Approach (ICD-10-PCS; principal; 2018-06-29 12:00)
DX: M17.11 Unilateral primary osteoarthritis, right knee (principal); N13.2 Hydronephrosis with renal and ureteral calculous obstruction; M21.061 Valgus deformity, not elsewhere classified, right knee; M32.9 Systemic lupus erythematosus, unspecified; J45.909 Unspecified asthma, uncomplicated; M25.461 Effusion, right knee; M79.7 Fibromyalgia; K21.9 Gastro-esophageal reflux disease without esophagitis; M41.9 Scoliosis, unspecified; F32.9 Major depressive disorder, single episode, unspecified; K58.9 Irritable bowel syndrome, unspecified; A60.00 Herpesviral infection of urogenital system, unspecified; E78.5 Hyperlipidemia, unspecified; M25.761 Osteophyte, right knee; E83.52 Hypercalcemia; Z80.1 Family history of malignant neoplasm of trachea, bronchus and lung; Z85.828 Personal history of other malignant neoplasm of skin; Z88.1 Allergy status to other antibiotic agents; Z88.2 Allergy status to sulfonamides; Z79.01 Long term (current) use of anticoagulants; Z83.3 Family history of diabetes mellitus; Z82.49 Family history of ischemic heart disease and other diseases of the circulatory system; Z82.61 Family history of arthritis; Z82.3 Family history of stroke; Z80.6 Family history of leukemia; Z81.8 Family history of other mental and behavioral disorders; R42 Dizziness and giddiness; R11.0 Nausea
CPT/HCPCS: 36415; 80048; 85014; 85018; 85049; 85610; 88305; 88311; A9270-GY; C1776; J0690; J0780; J1650; J2250; J2704; J2795; J3010